=== PATIENT | female | born 2000 | race Caucasian/White ===

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

== ENCOUNTER 2021-01-29 15:30 | Outpatient (RCR) | payer OTHER, SELFPAY ==
[2020-12-23 10:43] VITALS: BMI 23.4
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
--- NOTE | 2021-01-29 15:42 | HP.PTDCSUM ---
It has been my pleasure to treat GAYATHRI COPE referred by WENDY Parra, with the diagnosis of Right Ankle Sprain for a total of 10 visit(s). Discharge Date: Please see the following information for a summary of their discharge status. Subjective: Patient reports that its almost back to normal. Only hurts if she is on it more than 3-4 hours- in sandals. Trying to find a new job- wants to be on her feet and sitting part of the day. 70% only due to pain when standing only a 3/10. R ankle Pain Intensity (Out of 10): 0 % Improvement: 70 Objective/Function: Posture: good throughout session. Gait: no deviation noted Stairs: asc/desc recip with no HR HR/TR: no pain- able to perform without UEA SLS: 30 sec without LOB Girth: no edema noted. ROM: DF: 10 degrees, PF: 60 degrees, Inver: 30 degrees Ever: 20 degrees with NO pain in all directions. Strength: 5/5 throughout. Goal 1:: Patient will be I with HEP and progression Goal Progress: Goal Met Goal 2:: Patient will ambulate >300 feet with a normalized gait pattern Goal Progress: Goal Met Goal 3:: Patient will asc/desc 8 stairs recip with no HR and good control Goal Progress: Goal Met Goal 4:: Patient will SLS for 30 sec without LOB Goal Progress: Goal Met Goal 5:: Patient will return to all normal ADL's with no more than 2/10 pain Goal Progress: Goal Met Plan: 01/29/2021: Discharge to HEP- encouraged good shoe use for stabilization. Focus on ankle ROM, proprioception, LE and core strength/stabilization and functional mobility. HEP Given IE: standing weight shifts, ROM (DF, PF, Inver, Ever, Alphabet, Circles), Towel Gastroc Stretch If there are questions or concerns regarding this patient's physical therapy, please feel free to call me at [phone]. Thank you for the referral of this patient. Sincerely, Lili Doran DPT
== END 2021-01-29 19:00 | disposition home or self-care (01) ==
LOC: PT 15:30
PROVIDERS: PCP Obstetrics & Gynecology; Referring Provider Physician Assistant Surgical; Visit Provider Physician Assistant Surgical
DX: S96.911D Strain of unspecified muscle and tendon at ankle and foot level, right foot, subsequent encounter (principal); X58.XXXD Exposure to other specified factors, subsequent encounter
CPT/HCPCS: 97110; 97164

== ENCOUNTER 2021-04-15 19:04 | Emergency (ER) | payer OTHER, SELFPAY ==
[2021-04-15 19:05] VITALS: BP 129/81; PULSE 84; RESP 16; TEMP 36.3; O2SAT 98; BMI 24.1
--- NOTE | 2021-04-15 21:39 | EX.ED.DYSGE1 ---
HPI History of Present Illness Chief Complaint: Other, Pain/Inj Informant: patient Onset/Context/Timing Onset: Yesterday Context: Gradual Onset Timing: Continuous Quality: Sharp, aching, cramping Location: Neck, upper back, and upper chest Worsened by: Movement Relieved by: Pillow Narrative Narrative: Patient presents with pain and spasms in her neck that began yesterday. Patient states it became worse over the last several hours. Patient feels like she has cramping in her neck and upper back. Patient states it is better whenever she is able to put a pillow behind her neck. Patient states the pain radiates into both arms. Patient is to some numbness and tingling in her arms. Patient states the pain does also radiate into her chest. PFSH PFSH Medical History ADHD Anxiety and depression IBS (irritable bowel syndrome) Home Medications ibuprofen 600 mg PO Q6H PRN PRN #20 tab 06/27/19 [Rx Last Taken Unknown] omeprazole 20 mg PO DAILY 06/27/19 [History Last Taken Unknown] sertraline 25 mg tablet 25 mg PO DAILY 12/23/20 [History Last Taken Unknown] cyclobenzaprine 10 mg PO TID PRN #20 tablet 04/15/21 [Rx Last Taken Unknown] diazepam [Valium] 5 mg PO QHS PRN #10 tab 04/15/21 [Rx Last Taken Unknown] Allergy/AdvReac Type Severity Reaction Status Date / Time No Known Allergies Allergy Verified 01/02/21 07:02 Family History Other Polycystic kidney disease Surgical History no surgical history no surgical history Social History Smoking Status: Never smoker ROS ROS ED Constitutional Constitutional ED: Denies chills or fever(s) Eyes Eyes: Denies blurry vision or change in vision ENT ENT ED: Denies rhinorrhea or sore throat Cardiovascular Cardiovascular: Reports chest pain; Denies palpitations Respiratory/Chest Respiratory/Chest: Denies cough or dyspnea Gastrointestinal Gastrointestinal: Denies nausea or vomiting Genitourinary Genitourinary ED: Denies dysuria or hematuria Musculoskeletal Musculoskeletal: Reports back pain and neck pain Integumentary Denies abscess or rash Neurologic Neurologic: Denies headache(s) or weakness Allergic/Immunologic Allergic/Immunologic ED: Denies mouth swelling or urticaria EXAM Physical Exam Const Vital Signs: 04/15/21 19:05 04/15/21 23:03 Temperature 97.3 F L Temperature Source Temporal Pulse Rate 84 Respiratory Rate 16 14 Blood Pressure 129/81 H Blood Pressure Mean 97 Pulse Ox 98 Oxygen Delivery Method Room Air Positive well nourished and well developed General Appearance ED: well developed and NAD HEENT Reports moist mucous membranes Neck Neck Narrative: There is tenderness and spasm of the cervical paraspinal muscles. There is no bony crepitance or step-off. Range of motion was limited in all motions of the cervical spine secondary to pain. Strength is 5/5 bilaterally in the upper extremities. There are no sensory deficits noted. Resp normal respiratory effort and clear to auscultation bilaterally Cardio regular rate and regular rhythm GI normal to inspection, nondistended, normoactive bowel sounds and non-tender Palpation: soft Neuro oriented x3, CN's II-XII intact bilaterally and no sensory deficits noted Sensorium / Orientation: alert Motor Exam: strength 5/5 throughout Psych mental status grossly normal MDM MDM MDM Narrative Medical decision making narrative: Patient was given a dose of Norflex and Ativan here. Patient is feeling somewhat better on reevaluation. Patient is able to move her neck better. Patient is afebrile here. I do not feel this is meningitis. Patient's vital signs are otherwise normal. Patient does not look toxic or ill. Patient was given prescriptions for Flexeril and Valium. Patient was instructed to use warm compresses. Patient was instructed to follow-up with her primary care physician in 5 to 7 days. Patient understood and was agreeable with the plan. All questions were answered. Discharge Plan Triage Chief Complaint: Other, Pain/Inj ED Provider: William Landers Dx/Rx/DC Orders Clinical Impression: Cervical paraspinal muscle spasm Instructions: ED Neck Spasm, No Trauma Prescriptions: New cyclobenzaprine [cyclobenzaprine] 10 MG tablet 10 mg PO TID PRN (Reason: Muscle Spasm) Qty: 20 RF: 0 diazepam [Valium] 5 mg tablet 5 mg PO QHS PRN (Reason: muscle spasm) Qty: 10 RF: 0 No Action sertraline [Zoloft] 25 mg tablet 25 mg PO DAILY RF: 0 omeprazole 20 MG capsule,delayed release(DR/EC) 20 mg PO DAILY RF: 0 ibuprofen 600 MG tablet 600 mg PO Q6H PRN PRN (Reason: Pain/Inflammation) Qty: 20 RF: 0 Stand Alone Forms: ED Work / School Excuse Primary Care Provider: Mahi Ewing Referrals: Mahi Ewing DO [Primary Care Provider] - 3-5 Days Disposition Disposition: Home, Self Care Discharge Date/Time: 04/15/21 23:04
[2021-04-15] MEDS: LORazepam 2 MG/ML Syringe 0.5 MG IM (22:01)
[2021-04-15] MEDS: Orphenadrine 60 MG/2 ML Ampul IM (22:02)
[2021-04-15 23:03] VITALS: RESP 14
== END 2021-04-15 23:04 | disposition home or self-care (01) ==
PROVIDERS: Emergency Provider Emergency Medicine; PCP Pediatrics
DX: M62.838 Other muscle spasm (principal); K58.9 Irritable bowel syndrome, unspecified; F32.A Depression, unspecified; F41.9 Anxiety disorder, unspecified; Z79.899 Other long term (current) drug therapy
CPT/HCPCS: 96372; 99282

== ENCOUNTER 2022-10-29 13:33 | Emergency (ER) | payer OTHER, SELFPAY ==
[2022-10-29 13:33] VITALS: O2SAT 100
[2022-10-29 13:34] VITALS: BP 127/77; PULSE 117; RESP 16; TEMP 37.1; O2SAT 100; BMI 26.5
--- NOTE | 2022-10-29 14:17 | EKG12_ITS ---
Test Reason : Blood Pressure : / mmHG Vent. Rate : 113 BPM Atrial Rate : 113 BPM P-R Int : 136 ms QRS Dur : 074 ms QT Int : 318 ms P-R-T Axes : 064 054 002 degrees QTc Int : 436 ms Sinus tachycardia Nonspecific T wave abnormality Abnormal ECG Confirmed by AMARILYS MAZARIEGOS, SANTIAGO ([id number]), features editor BALTAZAR KRUEGER ([id number]) on 11/01/2022 11:06:44 AM Referred By: Marybeth Hernandez Confirmed By:SANTIAGO PANDA MD
--- NOTE | 2022-10-29 14:18 | EX.ED.DYSGE1 ---
HPI History of Present Illness Chief Complaint: Shortness of Breath Detail of Chief Complaint: Sore throat Informant: patient Narrative Narrative: Patient presents secondary to sore throat, cough, shortness of breath. She states that she noted her tonsils to be swollen about a month ago. 2 weeks ago she developed cough with throat pain. She has not had fever. She has seen her PCP multiple times. She has had strep and monotest that are negative. She has had lab work including [place] virus testing that was all negative. She is currently on prednisone and Zithromax without improvement. She presents today stating that she feels like it is getting harder to breathe and that her tonsils are swollen. [facility] Medical History ADHD Anxiety and depression IBS (irritable bowel syndrome) Home Medications ibuprofen 600 mg tablet 600 mg PO Q6H PRN PRN Pain/Inflammation #20 tabs 06/27/19 [Rx Last Taken Unknown] omeprazole 20 mg capsule,delayed release 20 mg PO DAILY 06/27/19 [History Last Taken Unknown] sertraline 25 mg tablet (Zoloft) 25 mg PO DAILY 12/23/20 [History Last Taken Unknown] cyclobenzaprine 10 mg tablet 10 mg PO TID PRN Muscle Spasm #20 TABLETS 04/15/21 [Rx Last Taken Unknown] diazepam 5 mg tablet (Valium) 5 mg PO QHS PRN muscle spasm #10 tabs 04/15/21 [Rx Last Taken Unknown] Allergy/AdvReac Type Severity Reaction Status Date / Time No Known Allergies Allergy Verified 01/02/21 07:02 Family History Other Polycystic kidney disease Social History Smoking Status: Never smoker ROS ROS ED Constitutional Constitutional ED: Denies chills or fever(s) Eyes Eyes: Denies change in vision ENT ENT ED: Reports sore throat; Denies rhinorrhea Cardiovascular Cardiovascular: Denies chest pain or palpitations Respiratory/Chest Respiratory/Chest: Reports cough and dyspnea Gastrointestinal Gastrointestinal: Denies abdominal pain, diarrhea, nausea or vomiting Musculoskeletal Musculoskeletal: Denies back pain or extremity pain Integumentary Denies Abrasions or rash Neurologic Neurologic: Denies headache(s) or weakness Psychiatric Psychiatric: Denies anxiety or depression Allergic/Immunologic Allergic/Immunologic ED: Denies lip swelling or urticaria EXAM Physical Exam Const Vital Signs: 10/29/22 13:34 10/29/22 13:33 10/29/22 15:33 Temperature 98.8 F Temperature Source Oral Pulse Rate 117 H 103 H Respiratory Rate 16 16 Respiratory Effort Normal Non-Labored Respiratory Depth Normal Respiratory Pattern Normal Blood Pressure 127/77 H 115/72 Blood Pressure Mean 93 86 Pulse Ox 100 99 Oxygen Delivery Method Room Air Room Air Room Air 10/29/22 16:00 Temperature Temperature Source Pulse Rate 100 Respiratory Rate 17 Respiratory Effort Respiratory Depth Respiratory Pattern Blood Pressure Blood Pressure Mean Pulse Ox 99 Oxygen Delivery Method Room Air Positive well nourished and well developed General Appearance ED: well developed HEENT Reports normocephalic and head/scalp atraumatic HEENT Narrative: 2+ tonsils bilaterally. Uvula midline. Patient tolerating secretions well. Speaking full sentences. She does have a hoarse voice noted. Eyes PERRL and EOMs intact bilaterally Neck supple Chest Wall inspection of chest normal and palpation of chest normal Resp normal respiratory effort and clear to auscultation bilaterally Cardio regular rate and regular rhythm GI normal to inspection, nondistended, normoactive bowel sounds Palpation: soft Extremity normal to inspection Neuro oriented x3 and no sensory deficits noted Sensorium / Orientation: alert Motor Exam: strength 5/5 throughout Psych mental status grossly normal Skin no rashes or lesions noted MDM MDM MDM Narrative Medical decision making narrative: Labwork obtained to evaluate for leukocytosis, anemia, and electrolyte derangement. CT scan of the neck obtained to evaluate for abscess or airway narrowing. Lab Data Attestation: I reviewed the patient's lab results. Labs: Laboratory Results - last 24 hr 10/29/22 10/29/22 10/29/22 15:32 15:58 15:58 WBC 8.1 RBC 4.67 Hgb 12.8 Hct 40.9 MCV 87.6 MCH 27.4 MCHC 31.3 L RDW Std Deviation 44.2 H RDW Coeff of Diana 13.9 Plt Count 203 MPV 9.8 Immature Gran % (Auto) 0.500 Neut % (Auto) 67.4 Lymph % (Auto) 16.7 L Meeker % (Auto) 13.8 H Eos % (Auto) 0.9 Baso % (Auto) 0.7 Absolute Neuts (auto) 5.5 Absolute Lymphs (auto) 1.36 Nucleated RBC % 0 Sodium 139 Potassium 3.5 Chloride 109 H Carbon Dioxide 26.0 Anion Gap 4 L BUN 12 Creatinine 0.77 Estim Creat Clear Calc 104.00 Est GFR (MDRD) Af Amer 121 Est GFR (MDRD) Non-Af 100 BUN/Creatinine Ratio 15.6 Glucose 79 Calcium 9.0 Serum , Qual Urine Test Negative 10/29/22 15:58 WBC RBC Hgb Hct MCV MCH MCHC RDW Std Deviation RDW Coeff of Diana Plt Count MPV Immature Gran % (Auto) Neut % (Auto) Lymph % (Auto) Meeker % (Auto) Eos % (Auto) Baso % (Auto) Absolute Neuts (auto) Absolute Lymphs (auto) Nucleated RBC % Sodium Potassium Chloride Carbon Dioxide Anion Gap BUN Creatinine Estim Creat Clear Calc Est GFR (MDRD) Af Amer Est GFR (MDRD) Non-Af BUN/Creatinine Ratio Glucose Calcium Serum , Qual NEGATIVE Urine Test Radiography Diagnostic Testing: Clinical Impression(s) from Imaging Studies Soft Tissue Neck CT 10/29/22 16:15 IMPRESSION: Possible tonsillitis. Sensitivity limited without IV contrast. Electronically Signed: Galo Gill MD at 17:05 EDT Reading Location ID and State: [address] [place] [address] , Service support , Chest X-Ray 10/29/22 16:20 IMPRESSION: Normal x-ray examination of the chest. No interval change. Electronically Signed: Kenji Peralta DO at 16:39 EDT Reading Location ID and State: [facility] / [place] Tel [phone], Service support , EKG Initial EKG: Attestation: I personally reviewed and interpreted this EKG as follows: Interpretation: Sinus Tachycardia (Sinus tach at 113 with no acute ischemia.) Treatment and Re-Evaluation :: CBC was normal white count 8.1. This is improved when compared to labs from a few days ago at [facility]. Hemoglobin is stable at 12.8. Chemistry studies unremarkable. test negative. Nursing staff was unable to establish an IV line therefore CT scan of the neck was obtained without contrast. Possible tonsillitis is noted. Sensitivity is noted to be limited without IV contrast, however airway is symmetric and open. No obvious fluid collection. Two-view chest x-ray per my interpretation was no evidence of infiltrate. Radiology interpretation is reviewed and agrees. At this time patient is to continue her Zithromax that she is currently on. She will be given ENT information for follow-up. Return instructions given. Discharge Plan Triage Chief Complaint: Shortness of Breath ED Provider: Marybeth Hernandez Dx/Rx/DC Orders Clinical Impression: Pharyngitis Instructions: ED Tonsillitis Prescriptions: No Action sertraline [Zoloft] 25 mg tablet 25 mg PO DAILY omeprazole 20 MG capsule,delayed release(DR/EC) 20 mg PO DAILY Label Comments: TAKE 1 CAPSULE BY MOUTH ONCE DAILY ibuprofen 600 MG tablet 600 mg PO Q6H PRN PRN (Reason: Pain/Inflammation) Qty: 20 0RF cyclobenzaprine [cyclobenzaprine] 10 MG tablet 10 mg PO TID PRN (Reason: Muscle Spasm) Qty: 20 0RF diazepam [Valium] 5 mg tablet 5 mg PO QHS PRN (Reason: muscle spasm) Qty: 10 0RF Primary Care Provider: Saundra Beaulieu NP Referrals: Mahi Ewing DO [Non-Staff] - Galo Keane MD [Med Staff - Active Staff] - As soon as possible Disposition Disposition: Home, Self Care
[2022-10-29 15:33] VITALS: BP 115/72; PULSE 103; RESP 16; O2SAT 99
[2022-10-29 15:59] LABS: Internal QC Validated? YES +Cl - CLEAR BKGD; Pregnancy, Urine Negative Negative
[2022-10-29 16:00] VITALS: PULSE 100; RESP 17; O2SAT 99
--- NOTE | 2022-10-29 16:15 | CT_ITS ---
STUDY: CT SOFT TISSUE NECK WITHOUT CONTRAST REASON FOR EXAM: Female, 21 years old. pharyngitis RADIATION DOSAGE (If Supplied By Facility): CTDIvol = ( 13.50 ) mGy, DLP = ( 795.61 ) mGycm TECHNIQUE: The patient was scanned in a multi-detector CT scanner. High resolution transaxial imaging was performed without the administration of intravenous contrast material. Sagittal and coronal images were reconstructed. Individualized dose optimization techniques were used for this CT. COMPARISON: None. FINDINGS: Normal bilateral parotid glands. 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 Normal bilateral parapharyngeal spaces. Normal bilateral carotid spaces. Normal bilateral sublingual and submandibular glands and spaces. Normal visualized nasopharynx. Normal retropharyngeal space. Normal perivertebral space. Prominent visualized bilateral faucial tonsils. The visualized tongue, tongue base and oropharynx are normal. No definite abscess but sensitivity limited without IV contrast. The visualized cervical lymph nodes (levels I-) are within normal size limits, and maintain normal morphology. There is no demonstrated solid or cystic mass lesion. Normal epiglottis, bilateral vallecula and hypopharynx. The pre-epiglottic and paraglottic adipose spaces are normal. Normal visualized bilateral piriform sinuses, aryepiglottic folds, vocal cords, and arytenoid-cricoid articulations. Normal subglottic trachea. Normal bilateral lobes of the thyroid gland. Normal visualized pulmonary apices. Normal visualized paranasal sinuses. Normal visualized cervical spine. CT/Soft Tissue Neck without Contr IMPRESSION: Possible tonsillitis. Sensitivity limited without IV contrast. Electronically Signed: Galo Gill MD at 17:05 EDT ,
--- NOTE | 2022-10-29 16:20 | RAD_ITS ---
STUDY: X-RAY CHEST REASON FOR EXAM: Female, 21 years old. Cough. 6 for roughly one month. Cough sore throat increasing shortness of breath. Patient taking steroids and antibiotics. Anxious. TECHNIQUE: PA and lateral views of the chest. COMPARISON: April 20, 2016. FINDINGS: The lungs are clear and expanded. There is no demonstrated pleural abnormality. Normal size heart. Normal mediastinum and dyu. Normal visualized pulmonary arteries. Normal visualized aortic arch and descending thoracic aorta. Normal visualized thoracic spine. Normal visualized ribs, clavicles, and shoulders. There is no demonstrated abnormality of the visualized soft tissue structures of the upper abdomen. RAD/Chest PA and Lateral IMPRESSION: Normal x-ray examination of the chest. No interval change. Electronically Signed: Kenji Peralta DO at 16:39 EDT ,
[2022-10-29 16:22] LABS: Absolute Lymphocyte Count 1.36 X10^3/uL (0.83-4.51); Absolute Neutrophil Count 5.5 X10^3/uL (2.0-7.7); Basophil# 0.06 X10^3/uL; Basophil% 0.7 % (0-1); Eosinophil# 0.07 X10^3/uL; Eosinophils% 0.9 % (0-5); Hematocrit 40.9 % (37-47); Hemoglobin 12.8 g/dL (12.0-15.0); Lymphocyte # 1.36 X10^3/ul (0.83-4.51); Lymphocyte % 16.7 % (19-41); Mean Corp Hgb Conc 31.3 g/dL (32-36); Mean Corpuscular Hgb 27.4 pg (27.0-32.0); Mean Corpuscular Volume 87.6 fL (81-99); Mean Platelet Vol. 9.8 fl (6.2-12.0); Monocyte# 1.12 X10^3/uL; Monocyte% 13.8 % (0-10); NRBC Flagged by Analyzer 0 % (0-5); Neutrophil # 5.48 X10^3/uL (2.7-7.7); Neutrophil % 67.4 % (47-70); Platelet Count 203 K/mm3 (150-450); RBC Distribution Width CV 13.9 % (11.6-14.6); RBC Distribution Width SD 44.2 fl (35.1-43.9); Red Blood Count 4.67 M/mm3 (4.2-5.4); White Blood Count 8.1 K/mm3 (4.4-11.0)
[2022-10-29 16:24] LABS: Anion Gap 4 (5-15); BUN 12 mg/dL (7-18); BUN/Creat Ratio 15.6 RATIO (10-20); Chloride 109 mmol/L (98-107); Creatinine, Serum 0.77 mg/dL (0.55-1.02); EST Glomerular Filtration Rate 100 mL/min (>60); Est Glom Filt Rate - Afr Amer 121 mL/min (>60); Glucose 79 mg/dL (74-106); Potassium 3.5 mmol/L (3.5-5.1); Sodium Level 139 mmol/L (136-145)
[2022-10-29 16:45] LABS: Internal QC Validated? YES +Cl - CLEAR BKGD; Pregnancy, Serum, hCG Quali. NEGATIVE Negative
[2022-10-29 17:23] VITALS: BP 127/88; PULSE 98; RESP 16; O2SAT 100
== END 2022-10-29 17:27 | disposition home or self-care (01) ==
PROVIDERS: Emergency Provider Emergency Medicine; PCP Nurse Practitioner Family; Referring Provider Emergency Medicine; Visit Provider Emergency Medicine
DX: J02.9 Acute pharyngitis, unspecified (principal); R06.02 Shortness of breath
CPT/HCPCS: 36415; 70490; 71046; 80048; 81025; 84703; 85025; 93005; 99283

== ENCOUNTER → 2022-11-09 | Outpatient (CLI) | payer OTHER, SELFPAY | END | disposition home or self-care (01) | LOC: LABSPEC 15:34 | PROVIDERS: PCP Nurse Practitioner Family; Referring Provider Otolaryngology; Visit Provider Otolaryngology | DX: J35.1 Hypertrophy of tonsils (principal) | CPT/HCPCS: 87070 ==

== ENCOUNTER 2023-03-24 16:00 | Outpatient (RCR) | payer OTHER, SELFPAY ==
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
--- NOTE | 2023-03-24 16:20 | HP.PTDCSUM_ITS ---
Discharge Summary D/C summary: It has been my pleasure to treat GAYATHRI COPE referred by KRISTEN LLAMAS, with the diagnosis of STRAIN NECK MUSCLE ,MUSCLE SPASMS for a total of 9 visit(s). Discharge Date: 03/24/23 Please see the following information for a summary of their discharge status. Subjective Subjective: Doing good . Pain Bilateral Neck: Pain Intensity (Out of 10): 1 Overall Improvement % Improvement: 90 Objective Objective/Function: Objective: POSTURE: mild forward posture ,head forward NEURO: denies paresthesia/tingling ,reflexes C5-6-7 1/3 PALAPTION:mild UT/levator CERVICAL ROM: flexion WNL ,retraction WNL ,lateral flexion/rotation WNL, extension WNL THORACIC ROM: flexion WNL ,extension WNL ,ROTATION WNL BUE AROM: flexion shoulder flexion 140 tight MMT: BUE grossly 4/5 except shoulder 4-/5 Goals Goal 1:: Patient to be I with HEP for cervical spine Goal Progress: Goal Met Goal 2:: Patient to demonstrate 60% improvement of of decrease pain and improved function Goal Progress: Goal Met Goal 3:: Patient to improve cervical ROM for function of recovery for driving and job demands. Goal Progress: Goal Met Goal 4:: Patient to improve neck oswestry score by 5 points or > to improve function Goal Progress: Goal Met Goal 5:: Patient to improve posture for ADLS's 90 % OF THE TIME Goal Progress: Goal Met Plan Plan: D/C O HEP D/C Information Discharge Comments: HEP d/c sentence: If there are questions or concerns regarding this patient's physical therapy, pl ease feel free to call me at [phone]. Thank you for the referral of this patient. Sincerely, Madan Bolton, PT, Cert MDT, OCS Balance/Gait/Functional tests Balance/Special Test Scores Oswestry Neck Score: 0 Improvement % Improvement: 90
== END 2023-03-24 19:00 | disposition home or self-care (01) ==
LOC: PT 16:00
PROVIDERS: PCP Nurse Practitioner Family
DX: S16.1XXD Strain of muscle, fascia and tendon at neck level, subsequent encounter (principal); M62.838 Other muscle spasm
CPT/HCPCS: 97110; 97140; 97162; 97530

== ENCOUNTER 2025-06-26 12:51 | Emergency (ER) | payer OTHER, SELFPAY ==
[2025-06-26] VITALS (11 sets, daily range): BP systolic 119–124; BP diastolic 70–75; PULSE 80–98; RESP 14–23; TEMP 36.3; O2SAT 96–100; BMI 27.6
--- NOTE | 2025-06-26 13:33 | EKG12_ITS ---
Test Reason : Blood Pressure : */* mmHG Vent. Rate : 90 BPM Atrial Rate : 90 BPM P-R Int : 128 ms QRS Dur : 80 ms QT Int : 350 ms P-R-T Axes : 68 52 19 degrees QTcB Int : 428 ms Normal sinus rhythm Normal ECG Confirmed by Merritt Cagle ([id number]), magazine editor BALTAZAR KRUEGER ([id number]) on 06/28/2025 10:25:21 AM Referred By: Confirmed By: Merritt Cagle
--- NOTE | 2025-06-26 13:50 | RAD_ITS ---
PROCEDURE: CHEST 1 VIEW (PORTABLE) 06/26/2025 REASON FOR EXAM: CHEST PAIN TECHNIQUE: Frontal view of the chest. FINDINGS: The heart is normal in size. The lungs are clear. No acute osseous abnormalities. RAD/Chest 1 View (Portable) IMPRESSION: No Acute Findings. Reading [facility] [facility] [place]
[2025-06-26 14:51] LABS: Hematocrit 39.1 % (37-47); Hemoglobin 12.8 g/dL (12.0-15.0); Immature Granulocytes Count 0.040 X10^3/uL (0.0-0.0); Mean Corp Hgb Conc 32.7 g/dL (32-36); Mean Corpuscular Volume 85.0 fL (81-99); Mean Platelet Vol. 9.9 fl (6.2-12.0); NRBC Flagged by Analyzer 0 % (0-5); Platelet Count 234 K/mm3 (150-450); RBC Distribution Width CV 12.8 % (11.6-14.6); RBC Distribution Width SD 39.1 fl (35.1-43.9); Red Blood Count 4.60 M/mm3 (4.2-5.4); White Blood Count 10.2 K/mm3 (4.4-11.0)
--- NOTE | 2025-06-26 15:21 | US_ITS ---
PROCEDURE: US ABDOMEN LIMITED 06/26/2025 REASON FOR EXAM: RUQ PAIN TECHNIQUE: Procedure Code: USABDL Modality: US Procedure: ABDOMEN LIMITED COMPARISON: None. FINDINGS: Liver: Normal in size with homogeneous parenchymal echotexture. Gallbladder: Normal. No stones, sludge, wall thickening or tenderness. Common bile duct: Normal measuring 0.3 cm diameter. Pancreas: Visualized portions are sonographically unremarkable. Other: Visualized right kidney is unremarkable. No right upper quadrant ascites. US/Abdomen Limited IMPRESSION: Unremarkable exam. No cholelithiasis or biliary ductal dilatation. Reading Location: [id number]
[2025-06-26 15:35] LABS: Anion Gap 14 (5-15); BUN 12 mg/dL (4-19); BUN/Creat Ratio 14.5 RATIO (10-20); Calcium,Total 9.4 mg/dL (7.6-11.0); Carbon Dioxide 20.4 mmol/L (21.0-32.0); Chloride 105 mmol/L (98-108); Estimated Creatinine Clearance 104.99 ml/min (50-250); Glucose 88 mg/dL (70-99); Potassium 4.3 mmol/L (3.3-5.1); Troponin T High Sensitivity < 6 ng/L (<=14)
[2025-06-26 16:03] LABS: AST(SGOT) 29 U/L (<=31); Alanine Aminotransfer ALT/SGPT 10 U/L (<=34); Albumin, Serum 4.1 g/dL (3.5-5.0); Alkaline Phosphatase 57 U/L (35-104); Bilirubin, Direct < 0.08 mg/dL (0.00-0.30); Globulin 2.8 g/dL (2.2-4.2); Lipase 18 U/L (13-75)
--- NOTE | 2025-06-26 16:21 | EX.ED.DYSGE1 ---
HPI History of Present Illness Chief Complaint: Chest Pain Narrative Narrative: Patient was seen and examined after presenting to ED for chest pain but points more in the epigastric and right upper quadrant region states that this started to flareup her anxiety. Denies having any oral contraceptive pills or hormone use no recent surgeries nothing outside be a red flag sign or symptom for DVT or PE no specific spicy fatty or greasy foods that were causing it did feel nauseated but no vomiting no fevers or chills. PFSH PFSH Medical History Anxiety Non-smoker IBS (irritable bowel syndrome) ADHD Anxiety and depression Home Medications ?Medication ?Instructions ?Recorded ?Last Taken ?Type ibuprofen 600 mg tablet 600 mg PO Q6H PRN PRN 06/27/19 Unknown Rx Pain/Inflammation #20 tabs omeprazole 20 mg capsule,delayed 20 mg PO DAILY 06/27/19 Unknown History release sertraline 25 mg tablet (Zoloft) 25 mg PO DAILY 12/23/20 Unknown History cyclobenzaprine 10 mg tablet 10 mg PO TID PRN Muscle Spasm #20 04/15/21 Unknown Rx TABLETS diazepam 5 mg tablet (Valium) 5 mg PO QHS PRN muscle spasm #10 04/15/21 Unknown Rx tabs Allergy/AdvReac Type Severity Reaction Status Date / Time No Known Allergies Allergy Verified 06/26/25 13:31 Family History Other Polycystic kidney disease Social History Smoking Status: Never smoker ROS ROS ED ROS Narrative Pertinent Positives: Epigastric right upper quadrant abdominal pain with some lower chest pain causing anxiety Pertinent Negatives: Fevers chills shortness of breath vomiting diarrhea black or bloody stools OCP use use of anticoagulation The remainder of review of systems negative unless otherwise stated in the HPI above. Systems reviewed including constitutional, psychiatric, cardiovascular, respiratory, integument, HENT, gastrointestinal. EXAM Physical Exam Narrative Exam Narrative: Patient is afebrile hemodynamically stable does not appear toxic or in distress they are normocephalic and atraumatic. Abdomen is soft nondistended seemingly point tender in the epigastric and right upper quadrant region no palpable pulsatile mass nothing reproducible on the chest wall itself no evidence of any abdominal wall hernias. Intact and equal MSPs in all extremities. No lower extremity edema or calf tenderness. Const Vital Signs: 06/26/25 13:29 06/26/25 13:33 06/26/25 14:00 Temperature 97.4 F L Temperature Source Temporal Pulse Rate 87 Respiratory Rate 16 18 Blood Pressure 124/74 H Blood Pressure Mean 90 Pulse Ox 99 96 Oxygen Delivery Method Room Air Room Air Room Air Oxygen Flow Rate (L/min) 100 06/26/25 14:37 06/26/25 14:45 06/26/25 15:00 Temperature Temperature Source Pulse Rate 89 87 80 Respiratory Rate 16 14 17 Blood Pressure Blood Pressure Mean Pulse Ox Oxygen Delivery Method Oxygen Flow Rate (L/min) 06/26/25 15:30 06/26/25 15:45 06/26/25 16:00 Temperature Temperature Source Pulse Rate 84 81 98 Respiratory Rate 18 14 Blood Pressure Blood Pressure Mean Pulse Ox Oxygen Delivery Method Oxygen Flow Rate (L/min) 06/26/25 16:13 06/26/25 16:15 Temperature Temperature Source Pulse Rate 84 87 Respiratory Rate 18 23 H Blood Pressure 121/70 H Blood Pressure Mean 86 Pulse Ox 100 100 Oxygen Delivery Method Oxygen Flow Rate (L/min) MDM MDM MDM Narrative Medical decision making narrative: Nursing notes, triage notes, available previous documentation, and vital signs were reviewed. Any discrepancies noted were addressed. Differential Diagnoses: Low suspicion for ACS PE aortic etiology could be pancreatitis or cholecystitis. Does not seem to be costochondritis either Labs Reviewed: No leukocytosis leukopenia anemia electrolyte abnormality renal insufficiency troponin is less than 6. LFTs and bilirubin are unremarkable lipase was 18 patient is not . Delta troponin is pending. Imaging Reviewed: Personally reviewed and interpreted by me: Chest x-ray no pneumonia edema widened mediastinum or pneumothoraces Abdominal ultrasound no acute pathology noted EKG: Normal sinus rhythm regular no ST segment elevation QTc and AK intervals are otherwise appropriate. EKG interpretation is noted and agreed to in the EMR. The interpretation of this patient's EKG contributed directly to the care and management of this patient. Risk Stratification Tools: PERC Rule: Age: <50, 0 Heart Rate: <100, 0 Room Air Pulse Ox <95%: No, 0 Unilateral Leg Swelling: No, 0 Hemoptysis: No, 0 Recent Surgery or Trauma: No, 0 Prior PE or DVT: No, 0 Hormone Use: No, 0 PERC negative. No need for further workup. <2% chance of PE. Previous Documentation Reviewed: None available or applicable at this time. ED Course: Patient presenting with symptoms as stated above seems to be more epigastric and right upper quadrant abdominal pain we will add on a right upper quadrant ultrasound to evaluate. Labs are unremarkable delta troponin is pending barring a significant findings with that patient will be discharged home with return precautions and follow-up recommendations 1803: Delta troponin came back at less than 6 patient be discharged she is stable for discharge home This note was made utilizing voice recognition software. All attempts were made to correct spelling or other errors prior to note completion. However, due to the fast-paced nature of emergency medicine, some errors may still be present. Lab Data Labs: Laboratory Results - last 24 hr 06/26/25 06/26/25 06/26/25 13:05 14:27 14:40 WBC 10.2 RBC 4.60 Hgb 12.8 Hct 39.1 MCV 85.0 MCH 27.8 MCHC 32.7 RDW Std Deviation 39.1 RDW Coeff of Diana 12.8 Plt Count 234 MPV 9.9 Immature Gran % (Auto) 0.400 Neut % (Auto) 70.0 Lymph % (Auto) 18.6 L [place] % (Auto) 7.9 Eos % (Auto) 2.4 Baso % (Auto) 0.7 Absolute Neuts (auto) 7.1 Absolute Lymphs (auto) 1.89 Nucleated RBC % 0 Sodium 139 Potassium 4.3 Chloride 105 Carbon Dioxide 20.4 L Anion Gap 14 BUN 12 Creatinine 0.84 Estim Creat Clear Calc 104.99 Est GFR (MDRD) Non-Af 100 BUN/Creatinine Ratio 14.5 Glucose 88 Calcium 9.4 Total Bilirubin 0.31 Direct Bilirubin < 0.08 AST 29 ALT 10 Alkaline Phosphatase 57 Troponin T High Sens < 6 Troponin T Hi Sens 2 Hr Total Protein 6.9 Albumin 4.1 Globulin 2.8 Lipase 18 Serum , Qual 06/26/25 06/26/25 16:15 16:30 WBC RBC Hgb Hct MCV MCH MCHC RDW Std Deviation RDW Coeff of Diana Plt Count MPV Immature Gran % (Auto) Neut % (Auto) Lymph % (Auto) [place] % (Auto) Eos % (Auto) Baso % (Auto) Absolute Neuts (auto) Absolute Lymphs (auto) Nucleated RBC % Sodium Potassium Chloride Carbon Dioxide Anion Gap BUN Creatinine Estim Creat Clear Calc Est GFR (MDRD) Non-Af BUN/Creatinine Ratio Glucose Calcium Total Bilirubin Direct Bilirubin AST ALT Alkaline Phosphatase Troponin T High Sens Troponin T Hi Sens 2 Hr < 6 Total Protein Albumin Globulin Lipase Serum , Qual NEGATIVE Radiography Diagnostic Testing: Clinical Impression(s) from Imaging Studies Chest X-Ray 06/26/25 13:50 IMPRESSION: No Acute Findings. Reading Location: [facility] Abdomen Ultrasound 06/26/25 15:21 IMPRESSION: Unremarkable exam. No cholelithiasis or biliary ductal dilatation. Reading Location: [facility] Discharge Plan Triage Chief Complaint: Chest Pain Other Complaint: Anxiety ED Provider: Zion English Dx/Rx/DC Orders Clinical Impression: Epigastric abdominal pain, Chest pain of uncertain etiology Instructions: ED Chest Pain, Uncertain Cause Prescriptions: No Action sertraline [Zoloft] 25 mg tablet 25 mg PO DAILY omeprazole 20 MG capsule,delayed release(DR/EC) 20 mg PO DAILY Patient Comments: TAKE 1 CAPSULE BY MOUTH ONCE DAILY ibuprofen 600 MG tablet 600 mg PO Q6H PRN PRN (Reason: Pain/Inflammation) Qty: 20 0RF cyclobenzaprine [cyclobenzaprine] 10 MG tablet 10 mg PO TID PRN (Reason: Muscle Spasm) Qty: 20 0RF diazepam [Valium] 5 mg tablet 5 mg PO QHS PRN (Reason: muscle spasm) Qty: 10 0RF Primary Care Provider: Saundra Beaulieu NP Referrals: Saundra Beaulieu NP, [id number] [Primary Care Provider, Palliative Medicine] Activity Restrictions/Additional Instructions: Be sure to follow-up with your doctor if you are having worsening symptoms do not hesitate to come back Print Language: Zambian Disposition Disposition: Home, Self Care
[2025-06-26 17:00] LABS: Internal QC Validated? YES +Cl - CLEAR BKGD; Pregnancy, Serum, hCG Quali. NEGATIVE Negative
[2025-06-26 17:35] LABS: Troponin T High Sens 2 HR < 6 ng/L (<=14)
== END 2025-06-26 18:13 | disposition home or self-care (01) ==
PROVIDERS: Emergency Provider Specialist/Technologist Athletic Trainer; PCP Nurse Practitioner Family; Visit Provider Specialist/Technologist Athletic Trainer
DX: R07.9 Chest pain, unspecified (principal); R10.13 Epigastric pain
CPT/HCPCS: 71045; 76705; 80048; 80076; 83690; 84484; 84703; 85025; 93005; 99285; A4216

== ENCOUNTER 2025-07-02 13:40 | Emergency (ER) | payer OTHER, SELFPAY ==
[2025-07-02 13:43] VITALS: BP 121/67; PULSE 87; RESP 18; TEMP 36.1; O2SAT 99
--- NOTE | 2025-07-02 14:08 | RAD_ITS ---
PROCEDURE: CHEST PA AND LATERAL 07/02/2025 REASON FOR EXAM: CHEST PAIN TECHNIQUE: Procedure Code: RADCXR Modality: DX Procedure: CHEST PA AND LATERAL FINDINGS: No focal consolidation. No pleural effusion or pneumothorax. Cardiac silhouette is within normal limits. No acute fractures. RAD/Chest PA and Lateral IMPRESSION: No focal consolidations. Reading Location: [facility]
[2025-07-02] MEDS: 0.9% Normal Saline (1000mL) 1,000 ML 999 ML IV (14:24)
[2025-07-02 14:25] LABS: Hematocrit 41.0 % (37-47); Hemoglobin 13.2 g/dL (12.0-15.0); Immature Granulocytes Count 0.030 X10^3/uL (0.0-0.0); Mean Corp Hgb Conc 32.2 g/dL (32-36); Mean Corpuscular Volume 86.1 fL (81-99); Mean Platelet Vol. 10.4 fl (6.2-12.0); NRBC Flagged by Analyzer 0 % (0-5); Platelet Count 241 K/mm3 (150-450); RBC Distribution Width CV 12.9 % (11.6-14.6); RBC Distribution Width SD 40.0 fl (35.1-43.9); Red Blood Count 4.76 M/mm3 (4.2-5.4); White Blood Count 8.6 K/mm3 (4.4-11.0)
[2025-07-02 14:26] LABS: Mucous, Urine 0 SEEN /hpf (<or=2+); Red Blood Cells-Urine 0 SEEN /hpf (0-5)
[2025-07-02 14:39] LABS: Color, Urine Yellow (Yellow); Glucose, Dipstick Normal (Normal); Ketone-Dipstick Negative (Negative); Leukocyte Esterase-Dipstick 25 /ul (Negative); Nitrite-Dipstick Negative (Negative); Occult Blood-Urine Negative /ul (Negative); Protein-Dipstick 15 mg/dl (Negative); Specific Gravity, Urine 1.015 (1.002-1.030); Urine Bilirubin Dipstick Negative (Negative)
[2025-07-02 14:42] LABS: D-Dimer Quantitative (DVT/PE) 0.59 FEU/ug/m (0.27-0.49)
[2025-07-02 14:44] LABS: Squamous Epithelial Cells - UA 0-5 SEEN /hpf (5-10)
[2025-07-02 14:45] LABS: Internal QC Validated? YES +Cl - CLEAR BKGD; Pregnancy, Urine Negative Negative
--- NOTE | 2025-07-02 15:02 | CT_ITS ---
PROCEDURE: CTA CHEST W/WO CONTRAST 07/02/2025 REASON FOR EXAM: PE TECHNIQUE: Procedure Code: [id number] Modality: CT Procedure: CTA CHEST W/WO CONTRAST Multidetector CT angiography of the chest with intravenous contrast including multiplanar and post-processed maximum intensity projection (MIP) were generated and interpreted. CONTRAST: Isovue 370 VOLUME: 100 mL One or more dose reduction techniques were used (e.g., Automated exposure control, adjustment of the mA and/or kV according to patient size, use of iterative reconstruction technique). RADIATION DOSE SUMMARY: DLP: 187.83 mGycm COMPARISON: None. FINDINGS: Opacification of the pulmonary arterial tree is adequate. Pulmonary artery and thoracic vessels: There are no filling defects in the central pulmonary arteries. The main pulmonary artery and thoracic aorta are normal in caliber. No evidence of thoracic aortic dissection. Pulmonary parenchyma: Clear lungs. Airways: The central airways are patent. Pleural space: No pneumothorax or pleural effusion. Heart and pericardium: The heart is normal in size. No pericardial effusion. No visible coronary artery calcifications. Mediastinum and duy: Unremarkable. Osseous structures and soft tissue: No aggressive osseous lesion. Left subcentimeter hypodense thyroid nodules. Upper visualized abdomen: Unremarkable. CT/CTA Chest W/WO Contrast IMPRESSION: 1. No evidence of pulmonary embolism. 2. No focal lung consolidation. Reading Location: [id number]
--- NOTE | 2025-07-02 15:11 | EX.ED.DYSGE1 ---
HPI History of Present Illness Chief Complaint: Palpitations Narrative Narrative: Chief complaint and HPI: 24-year-old female with past medical history of anxiety and depression, ADHD, IBS presents for evaluation of intermittent palpitations. Patient states this week she has had 3 episodes while sitting where she develops palpitations, tachycardic, chest pain, and shortness of breath. She states the episodes last approximately 30 minutes. States today it happened while sitting down. States she think she had about a 10-second episode of syncope with it. She had an EKG performed at work which showed sinus tachycardia with a heart rate of 115. No acute ischemic changes. I did personally review this EKG as they had it all in them. Currently asymptomatic. She does not believe herself to be . She denies any bilateral lower extremity swelling. Denies any history of recent surgery or travel. Review of systems: See HPI Medications: As listed on the chart Allergies: As listed on the chart PFSH: Per chart Vital signs: As listed on the chart. Reviewed. Physical exam: Gen: A&O x3, NAD Head: Normocephalic, atraumatic Eyes: No sclera icterus, conjunctiva clear ENT: Moist mucous membranes Neck: Trachea midline, No JVD CV: RRR, no murmurs, no peripheral edema Resp: Lungs CTA BL, no w/r/c GI: Abd soft, non-distended, non-tender, no r/r/g Musc: Full ROM, no deformity Skin: Warm, dry Neuro: Alert, oriented, grossly intact, sensation intact Psych: Cooperative, appropriate mood and affect [facility] History Anxiety Non-smoker IBS (irritable bowel syndrome) ADHD Anxiety and depression Home Medications ?Medication ?Instructions ?Recorded ?Last Taken ?Type ibuprofen 600 mg tablet 600 mg PO Q6H PRN PRN 06/27/19 Unknown Rx Pain/Inflammation #20 tabs omeprazole 20 mg capsule,delayed 20 mg PO DAILY 06/27/19 Unknown History release sertraline 25 mg tablet (Zoloft) 25 mg PO DAILY 12/23/20 Unknown History cyclobenzaprine 10 mg tablet 10 mg PO TID PRN Muscle Spasm #20 04/15/21 Unknown Rx TABLETS diazepam 5 mg tablet (Valium) 5 mg PO QHS PRN muscle spasm #10 04/15/21 Unknown Rx tabs Allergy/AdvReac Type Severity Reaction Status Date / Time No Known Allergies Allergy Verified 07/02/25 13:44 Family History Other Polycystic kidney disease Social History (Updated 07/02/25 @ 14:03 by Chyna Hernandez) housing: house Smoking Status: Never smoker EXAM Physical Exam Const Vital Signs: 07/02/25 13:43 07/02/25 14:03 07/02/25 15:42 Temperature 96.9 F L Temperature Source Temporal Pulse Rate 87 83 Respiratory Rate 18 16 Respiratory Effort Normal Non-Labored Blood Pressure 121/67 H 114/73 Blood Pressure Mean 85 86 Pulse Ox 99 98 Oxygen Delivery Method Room Air 07/02/25 17:00 Temperature Temperature Source Pulse Rate 81 Respiratory Rate Respiratory Effort Blood Pressure 100/73 Blood Pressure Mean 82 Pulse Ox 100 Oxygen Delivery Method MDM MDM MDM Narrative Medical decision making narrative: 24-year-old female with past medical history of anxiety and depression, ADHD, IBS presents for evaluation of intermittent palpitations. Patient states this week she has had 3 episodes while sitting where she develops palpitations, tachycardic, chest pain, and shortness of breath. She states the episodes last approximately 30 minutes. States today it happened while sitting down. States she think she had about a 10-second episode of syncope with it. She had an EKG performed at work which showed sinus tachycardia with a heart rate of 115. No acute ischemic changes. I did personally review this EKG as they had it all in them. Currently asymptomatic. On presentation, patient no acute distress. Vitals stable without tachycardia. Differential diagnosis includes but is not limited to arrhythmia, electrolyte abnormality, anemia, thyroid disease, anxiety reaction, panic attack, ACS, PE, , dehydration. NS bolus ordered. Cardiac workup ordered. CBC unremarkable without leukocytosis or anemia. D-dimer elevated at 0.59. Cannot rule out PE. CTA chest ordered. UA negative for UTI. Urine negative. BMP unremarkable. Magnesium unremarkable. TSH unremarkable. BNP unremarkable. CTA chest negative for PE. Patient does have left subcentimeter hypodense thyroid nodules which need further worked up outpatient. Per nursing, patient had one of her episodes in the room. Nursing thought that the patient was hyperventilating and possibly having a panic attack. When I arrived at the room to witness the event, patient was asymptomatic with normal vitals. I did ask the patient if she feels that she is having a panic attack. She denies this. Mother in the room states she recently was having panic attacks in which they recently increased her Cymbalta 2 weeks ago. I did look on the monitor at the rhythm strip during the patient's witnessed episode. At that time she appears to be in sinus tachycardia with high respiratory rate. Troponin unremarkable x 2. At this point in time, no clear etiology for patient's symptoms. Given her symptoms with an episode of syncope, I did contact our clinical rehabilitation aide Dr. Sparrow and patient was discussed. Given unremarkable workup, recommends following up outpatient with cardiology and primary care physician. Recommended event monitor instead of Holter monitor which I was going to discharge the patient home on. Patient will be given a prescription for an event monitor. She is educated to return back to the ED symptoms change or worsen. Given these episodes I did recommend her not driving or operating heavy machinery or doing any activities such as swimming that can cause permanent bodily harm to herself or others. Her and her family confirmed understanding of the plan. EKG: Interpreted by me/EM physician: Shows normal sinus rhythm with arrhythmia. No acute ischemic changes. No QTc prolongation. Heart rate 88. Diagnostic: Interpreted by me/EM physician: Chest x-ray no pneumonia, effusion, cardiomegaly, pneumothorax. Radiology in agreement. Impression: 1. Episodic palpitation/tachycardia 2. Episodic chest pain 3. Syncopal episode Lab Data Labs: Laboratory Results - last 24 hr 07/02/25 07/02/25 07/02/25 14:00 14:21 16:02 WBC 8.6 RBC 4.76 Hgb 13.2 Hct 41.0 MCV 86.1 MCH 27.7 MCHC 32.2 RDW Std Deviation 40.0 RDW Coeff of [place] 12.9 Plt Count 241 MPV 10.4 Immature Gran % (Auto) 0.300 Neut % (Auto) 74.9 H Lymph % (Auto) 15.8 L [place] % (Auto) 5.3 Eos % (Auto) 3.0 Baso % (Auto) 0.7 Absolute Neuts (auto) 6.5 Absolute Lymphs (auto) 1.36 Nucleated RBC % 0 D-Dimer Quant (PE/DVT) 0.59 H* Sodium 140 Potassium 3.7 Chloride 103 Carbon Dioxide 25.5 Anion Gap 11 BUN 11 Creatinine 0.89 Est GFR (MDRD) Non-Af 93 BUN/Creatinine Ratio 12.6 Glucose 100 H Calcium 9.1 Magnesium 2.1 Troponin T High Sens < 6 Troponin T Hi Sens 2 Hr < 6 NT pro BNP II < 36 TSH 0.359 Urine Color Yellow Urine Clarity Cloudy Urine pH 8.0 Ur Specific [place] 1.015 Urine Protein 15 H Urine Glucose (UA) Normal Urine Ketones Negative Urine Occult Blood Negative Urine Nitrite Negative Urine Bilirubin Negative Urine Urobilinogen Normal Ur Leukocyte Esterase 25 H Urine RBC 0 SEEN Urine WBC 0 SEEN Ur Squamous Epith Cells 0-5 SEEN Amorphous Sediment 3+ Urine Bacteria 0 SEEN Urine Mucus 0 SEEN Urine Test Negative Radiography Diagnostic Testing: Clinical Impression(s) from Imaging Studies Chest X-Ray 07/02/25 14:08 IMPRESSION: No focal consolidations. Reading Location: [facility] Chest CTA 07/02/25 15:02 IMPRESSION: 1. No evidence of pulmonary embolism. 2. No focal lung consolidation. Reading Location: [facility] Discharge Plan Triage Chief Complaint: Palpitations Other Complaint: Syncope ED Provider: Vinod Polk Dx/Rx/DC Orders Clinical Impression: Chest pain of uncertain etiology, Palpitations Instructions: ED Chest Pain, Uncertain Cause, ED Heart Palpitations Prescriptions: No Action sertraline [Zoloft] 25 mg tablet 25 mg PO DAILY omeprazole 20 MG capsule,delayed release(DR/EC) 20 mg PO DAILY Patient Comments: TAKE 1 CAPSULE BY MOUTH ONCE DAILY ibuprofen 600 MG tablet 600 mg PO Q6H PRN PRN (Reason: Pain/Inflammation) Qty: 20 0RF cyclobenzaprine [cyclobenzaprine] 10 MG tablet 10 mg PO TID PRN (Reason: Muscle Spasm) Qty: 20 0RF diazepam [Valium] 5 mg tablet 5 mg PO QHS PRN (Reason: muscle spasm) Qty: 10 0RF Other Ambulatory Orders: 30 Day Event Recorder Preventi (Urgent) Timeframe: 1 Day Facility: [facility] - Location: Cardiovascular Services [facility] Provider: Saundra Beaulieu NP Referrals: Herb Wallace MD [Med Staff - Active Staff, Cardiology] - 3-5 Days Miguel Martell MD [Med Staff - Active Staff, Family Practice] - 3-5 Days Saundra Beaulieu NP, [facility] [Primary Care Provider, Palliative Medicine] - 3-5 Days Activity Restrictions/Additional Instructions: No clear reason for your symptoms at this time. You were given a prescription for an event monitor to wear. Return back to ED if symptoms change or worsen. Follow-up with primary care physician and cardiology. If you do not have a primary care physician follow-up with the one listed above. Recommend not driving or operating heavy machinery or doing any activity such as swimming that could cause permanently body harm to yourself or others until symptoms have resolved or been diagnosed. Print Language: Tajik Disposition Disposition: Home, Self Care
[2025-07-02 15:29] LABS: Anion Gap 11 (7-18); BUN 11 mg/dL (4-19); BUN/Creat Ratio 12.6 RATIO (10-20); Calcium,Total 9.1 mg/dL (7.6-11.0); Carbon Dioxide 25.5 mmol/L (20.0-29.0); Chloride 103 mmol/L (96-106); Glucose 100 mg/dL (70-99); Magnesium 2.1 mg/dL (1.5-2.2); Potassium 3.7 mmol/L (3.5-5.1)
[2025-07-02 15:30] LABS: Pro- Brain NATRIURETIC PEPTIDE < 36 pg/mL (<=450)
[2025-07-02 15:42] VITALS: BP 114/73; PULSE 83; RESP 16; O2SAT 98
[2025-07-02 15:48] LABS: Troponin T High Sensitivity < 6 ng/L (<=14)
[2025-07-02 17:00] VITALS: BP 100/73; PULSE 81; O2SAT 100
[2025-07-02 17:32] LABS: Troponin T High Sens 2 HR < 6 ng/L (<=14)
[2025-07-02 17:36] VITALS: BP 100/73; PULSE 81; RESP 16; TEMP 36.8; O2SAT 100
== END 2025-07-02 17:37 | disposition home or self-care (01) ==
PROVIDERS: Emergency Provider Surgery; PCP Nurse Practitioner Family; Visit Provider Surgery
DX: R00.2 Palpitations (principal); R07.9 Chest pain, unspecified; R55 Syncope and collapse; R06.02 Shortness of breath
CPT/HCPCS: 71046; 71275; 80048; 81001; 81025; 83735; 83880; 84443; 84484; 85025; 85379; 93005; 96360; 96361; 99285; Q9967; A4216